=== PATIENT | female | born 1995 | race Caucasian/White ===

== ENCOUNTER 2025-02-28 00:27 | Emergency (ER) | payer SELFPAY ==
[~2025-02-28] VITALS: Ht 160 cm; Wt 71.0 kg
[2025-02-28 00:42] VITALS: O2SAT 99
[2025-02-28] MEDS ORDERED: VALA10002 MT (00:58)
[2025-02-28] MEDS ORDERED: P20 MT (00:58)
[2025-02-28] MEDS ORDERED: GLYC30DR4 RIGHTEYE (00:58)
[2025-02-28 01:11] VITALS: BP 112/79; PULSE 73; RESP 18; TEMP 36.8; O2SAT 100
== END 2025-02-28 01:13 | disposition home or self-care (01) ==
LOC: ER 00:27
DX: G51.0 Bell's palsy (principal); Z79.624 Long term (current) use of inhibitors of nucleotide synthesis; Z98.890 Other specified postprocedural states
CPT/HCPCS: 99283; Z7610 ×4; A4606

== ENCOUNTER 2025-03-08 15:51 | Emergency (ER) | payer MEDICAID ==
[~2025-03-08] VITALS: Ht 170.2 cm; Wt 65.0 kg
[~2025-03-08 15:51] MED LIST: GLYC30DR4 RIGHTEYE; P20 MT; VALA10002 MT
[2025-03-08 15:58] VITALS: O2SAT 99
[2025-03-08] MEDS: MAGNESIUM/ALUMINUM HYDROXIDE/SIMETHICONE 30ML UDC PO ONE (17:30)
[2025-03-08] MEDS: KETOROLAC 30MG/ML VIAL IM ONE (17:30)
[2025-03-08 18:25] LABS: BASOPHILS % 0.4 % (0.0-2.0); EOSINOPHILS % 1.5 % (0.0-5.0); HEMATOCRIT. 34.9 % (36.0-48.0); HEMOGLOBIN. 11.8 g/dL (12.0-16.0); LYMPHOCYTES % 25.8 % (20.0-50.0); MEAN CORPUSCULAR HEMOGLOBIN 28.8 pg (28.0-32.0); MEAN CORPUSCULAR HGB CONC 33.8 g/dL (31.0-37.0); MEAN CORPUSCULAR VOLUME 85.3 fL (81.0-99.0); MEAN PLATELET VOLUME 8.4 fl (7.4-10.4); MONOCYTES % 5.4 % (2.0-8.0); NEUTROPHILS % 66.9 % (40.0-76.0); PLATELET 259 x1000/uL (130-400); RED BLOOD CELL COUNT 4.09 mill/uL (4.2-5.4); RED CELL DISTRIBUTION WIDTH 14.5 % (11.6-14.6); WHITE BLOOD COUNT 11.9 x1000/uL (4.5-11.0)
[2025-03-08 18:37] LABS: CHLORIDE 104 mEq/L (98-107); POTASSIUM 3.5 mEq/L (3.5-5.1); SODIUM 139 mEq/L (136-145)
[2025-03-08 18:38] LABS: CALCIUM 8.7 mg/dL (8.7-10.4); CARBON DIOXIDE 31 mEq/L (21-32)
[2025-03-08 18:43] LABS: CREATININE 0.8 mg/dL (0.6-1.0); GLUCOSE 88 mg/dL (70-105); UREA NITROGEN BLOOD 10 mg/dL (9-23)
[2025-03-08 18:45] LABS: ALANINE AMINOTRANSFERASE 10 IU/L (10-49); ALBUMIN 3.8 g/dL (3.2-4.8); ASPARTATE AMINOTRANSFERASE 12 IU/L (<34); BILIRUBIN DIRECT < 0.1 mg/dL (<=3.0)
[2025-03-08 18:46] LABS: BILIRUBIN TOTAL 0.4 mg/dL (0.1-1.0); PROTEIN TOTAL 6.1 g/dL (6.0-8.3)
[2025-03-08 18:56] LABS: HCG SCREEN NEGATIVE
[2025-03-08] MEDS: ONDANSETRON 4MG ODT PO ONE (19:07)
[2025-03-08] MEDS ORDERED: NAPR-1129 MT (19:35)
[2025-03-08] MEDS ORDERED: FAMO20TA8 MT (19:38)
[2025-03-08 19:50] VITALS: BP 115/66; PULSE 70; RESP 18; TEMP 36.6; O2SAT 100
== END 2025-03-08 20:07 | disposition home or self-care (01) ==
LOC: ER 15:51
DX: R51.9 Headache, unspecified (principal); R10.11 Right upper quadrant pain; M79.601 Pain in right arm; Z79.624 Long term (current) use of inhibitors of nucleotide synthesis; Z79.899 Other long term (current) drug therapy; Z98.890 Other specified postprocedural states
CPT/HCPCS: 80076; 80048; 84703; 83690; 85025; 36415; 70450; 72125; 76705; 96372; 99285; Q0162; J1885; Z7610 ×4; A4606